=== PATIENT | male | born 1975 | race Two or more races ===

== ENCOUNTER 2017-07-03 12:37 | Inpatient (IN) | payer OTHER ==
[2017-07-03] MEDS ORDERED: SODIUM CHLORIDE 0.9% 500 ML IV STA (12:45)
[2017-07-03 12:46] LABS: Glucose,Whole Blood 126 mg/dL (75-99)
--- NOTE | 2017-07-03 12:48 | ED ---
General Adult HPI - General Stated complaint: Seizure Time Seen by Provider: 07/03/17 12:40 Source: RN notes reviewed - History of Present Illness Initial comments: This is a 41-year-old male with a past medical history significant for glioblastoma. According to the father the patient had surgery on that in January. Patient was just getting back from a doctor's appointment when he was in the car with his father and had a seizure. Father states she's never had a seizure before. Father states he was feeling fine enough had no recent fevers chills or cough per patient has a difficult to breathing. Patient has not been complaining of any chest pain or abdominal pain. Patient did not fall because he was seated in a car so there was no injury. Patient is postictal and unable to give any history. - Related Data Home Medications Medication Instructions Recorded Confirmed Multivitamins, Thera [Multivitamin 1 tab PO DAILY 07/03/17 07/03/17 (formulary)] Allergies Allergy/AdvReac Type Severity Reaction Status Date / Time pistachio nut Allergy Unknown Verified 07/03/17 13:36 Review of Systems ROS Statement: Those systems with pertinent positive or pertinent negative responses have been documented in the HPI. ROS Other: All systems not noted in ROS Statement are negative. General Exam - General Exam Comments Initial Comments: GENERAL: Patient is well-developed and well-nourished. ENT: Neck is soft and supple. No significant lymphadenopathy is noted. Oropharynx is clear. Moist mucous membranes. EYES: The sclera were anicteric and conjunctiva were pink and moist. Extraocular movements were intact and pupils were equal round and reactive to light. Eyelids were unremarkable. PULMONARY: Unlabored respirations. Good breath sounds bilaterally. No audible rales rhonchi or wheezing was noted. CARDIOVASCULAR: There is a regular rate and rhythm without any murmurs gallops or rubs. ABDOMEN: Soft and nontender with normal bowel sounds. SKIN: Skin is clear with no lesions or rashes and otherwise unremarkable. NEUROLOGIC: Patient is postictal. MUSCULOSKELETAL: Patient will not follow commands at this time. LYMPHATICS: No significant lymphadenopathy is noted PSYCHIATRIC: Unable to assess Course Vital Signs 07/03/17 07/03/17 07/03/17 13:00 13:49 14:47 Temperature 97.9 F Pulse Rate 98 152 H 64 Respiratory 20 16 16 Rate Blood Pressure 160/98 159/84 174/86 O2 Sat by Pulse 96 92 L 98 Oximetry 07/03/17 07/03/17 14:58 15:28 Temperature Pulse Rate 150 H 140 H Respiratory 18 16 Rate Blood Pressure 162/96 142/98 O2 Sat by Pulse 94 L 94 L Oximetry Medical Decision Making - Medical Decision Making EKG shows sinus tachycardia with occasional PVCs at a rate of 143 bpm IN interval is 122 QRS is 96 Q-T intervals 276 QTC is 425 per patient's EKG shows no ST segment elevation or with there is some ST segment depression inferiorly. I spoke with Dr. Minor and he agreed to admit the patient ICU. Dr. Minor wanted the patient on D5 W. I spoke with Dr. Jimenez he agreed to admit the patient. I spoke with Dr. Willis he agreed to accept the patient as a consult he wanted the patient on Keppra so started Keppra. - Lab Data Result diagrams: 07/03/17 12:40 07/03/17 12:40 Lab Results 07/03/17 07/03/17 07/03/17 Range/Units 12:40 12:40 12:40 WBC 10.2 (3.8-10.6) k/uL RBC 6.37 H (4.30-5.90) m/uL Hgb 15.0 (13.0-17.5) gm/dL Hct 50.9 (39.0-53.0) % MCV 79.9 L (80.0-100.0) fL MCH 23.5 L (25.0-35.0) pg MCHC 29.4 L (31.0-37.0) g/dL RDW 17.4 H (11.5-15.5) % Plt Count 129 L (150-450) k/uL Neutrophils % (Manual) 32 % Band Neutrophils % 1 % Lymphocytes % (Manual) 58 % Monocytes % (Manual) 9 % Neutrophils # (Manual) 3.30 (1.3-7.7) k/uL Lymphocytes # (Manual) 5.92 H (1.0-4.8) k/uL Monocytes # (Manual) 0.92 (0-1.0) k/uL Nucleated RBCs 0 (0-0) /100 WBC Manual Slide Review Performed Hypochromasia Marked Poikilocytosis (manual Present Anisocytosis Slight PT (9.0-12.0) sec INR (<1.2) APTT (22.0-30.0) sec Sodium 156 H (137-145) mmol/L Potassium 4.3 (3.5-5.1) mmol/L Chloride 110 H (98-107) mmol/L Carbon Dioxide 9 L* (22-30) mmol/L Anion Gap 37 mmol/L BUN 7 L (9-20) mg/dL Creatinine 0.89 (0.66-1.25) mg/dL Est GFR (CKD-EPI)AfAm >90 (>60 ml/min/1.73 sqM) Est GFR (CKD-EPI)NonAf >90 (>60 ml/min/1.73 sqM) Glucose 133 H (74-99) mg/dL POC Glucose (mg/dL) (75-99) mg/dL POC Glu Vp Analysis ID Plasma Lactic Acid Kurt (0.7-2.0) mmol/L Calcium 10.4 H (8.4-10.2) mg/dL Magnesium 2.4 H (1.6-2.3) mg/dL Total Bilirubin 0.5 (0.2-1.3) mg/dL AST 41 (17-59) U/L ALT 53 (21-72) U/L Alkaline Phosphatase 75 (38-126) U/L Total Creatine Kinase 73 (55-170) U/L CK-MB (CK-2) 0.3 (0.0-2.4) ng/mL CK-MB (CK-2) Rel Index 0.4 Troponin I <0.012 (0.000-0.034) ng/mL Total Protein 8.5 H (6.3-8.2) g/dL Albumin 5.1 H (3.5-5.0) g/dL 07/03/17 07/03/17 07/03/17 Range/Units 12:40 12:44 14:45 WBC (3.8-10.6) k/uL RBC (4.30-5.90) m/uL Hgb (13.0-17.5) gm/dL Hct (39.0-53.0) % MCV (80.0-100.0) fL MCH (25.0-35.0) pg MCHC (31.0-37.0) g/dL RDW (11.5-15.5) % Plt Count (150-450) k/uL Neutrophils % (Manual) % Band Neutrophils % % Lymphocytes % (Manual) % Monocytes % (Manual) % Neutrophils # (Manual) (1.3-7.7) k/uL Lymphocytes # (Manual) (1.0-4.8) k/uL Monocytes # (Manual) (0-1.0) k/uL Nucleated RBCs (0-0) /100 WBC Manual Slide Review Hypochromasia Poikilocytosis (manual Anisocytosis PT 9.5 (9.0-12.0) sec INR 0.9 (<1.2) APTT 23.1 (22.0-30.0) sec Sodium (137-145) mmol/L Potassium (3.5-5.1) mmol/L Chloride (98-107) mmol/L Carbon Dioxide (22-30) mmol/L Anion Gap mmol/L BUN (9-20) mg/dL Creatinine (0.66-1.25) mg/dL Est GFR (CKD-EPI)AfAm (>60 ml/min/1.73 sqM) Est GFR (CKD-EPI)NonAf (>60 ml/min/1.73 sqM) Glucose (74-99) mg/dL POC Glucose (mg/dL) 126 H (75-99) mg/dL POC Glu Vp Analysis ID Aleena Adams Plasma Lactic Acid Kurt 5.5 H* (0.7-2.0) mmol/L Calcium (8.4-10.2) mg/dL Magnesium (1.6-2.3) mg/dL Total Bilirubin (0.2-1.3) mg/dL AST (17-59) U/L ALT (21-72) U/L Alkaline Phosphatase (38-126) U/L Total Creatine Kinase (55-170) U/L CK-MB (CK-2) (0.0-2.4) ng/mL CK-MB (CK-2) Rel Index Troponin I (0.000-0.034) ng/mL Total Protein (6.3-8.2) g/dL Albumin (3.5-5.0) g/dL Critical Care Time Critical Care Time: Yes Total Critical Care Time: 35 Disposition Clinical Impression: New onset seizure, Hypernatremia, Lactic acidosis Disposition: ADMITTED IP TO THIS HOSP Referrals: None,Stated [REFERRING] - 1-2 days Time of Disposition: 16:02
[2017-07-03] MEDS: LORazepam 2 MG/ML INJ IV STA ×2 (12:50→14:58)
--- NOTE | 2017-07-03 13:06 | CT ---
EXAMINATION TYPE: CT brain wo con DATE OF EXAM: 07/03/2017 COMPARISON: NONE HISTORY: Seizure, history of glioblastoma with surgery CT DLP: 985.3 mGycm. Automated Exposure Control for Dose Reduction was Utilized. TECHNIQUE: CT scan of the head is performed without contrast. FINDINGS: There is abnormal attenuation within the right temporal lobe suggestive of vasogenic hany a. Area of encephalomalacia involving the right occipital lobe and posterior parietal lobe noted and there is evidence of previous surgery. No midline shift or evidence of acute hemorrhage. Postsurgical change involving the calvarium noted. Changes of chronic sinusitis noted. IMPRESSION: 1. Abnormal attenuation within the right temporal and parietal lobe may be in the basis of vasogenic edema given the patient's history and related to the reported history of neoplasm. Recommend MRI. 2. No midline shift or acute hemorrhage. 3. Encephalomalacia involving the posterior occipital and parietal lobe.
[2017-07-03 13:21] LABS: Anisocytosis Slight; HCT 50.9 % (39.0-53.0); Hypochromasia Marked; MCH 23.5 pg (25.0-35.0); MCHC 29.4 g/dL (31.0-37.0); MCV 79.9 fL (80.0-100.0); Mean Platelet Volume 6.8; Platelet Count 129 k/uL (150-450); RBC 6.37 m/uL (4.30-5.90); RDW 17.4 % (11.5-15.5); WBC 10.2 k/uL (3.8-10.6)
[2017-07-03 13:26] LABS: ALT 53 U/L (21-72); AST 41 U/L (17-59); Albumin 5.1 g/dL (3.5-5.0); Alkaline Phosphatase 75 U/L (38-126); Anion Gap 37 mmol/L; Blood Urea Nitrogen 7 mg/dL (9-20); Calcium 10.4 mg/dL (8.4-10.2); Chloride 110 mmol/L (98-107); Glucose 133 mg/dL (74-99); Magnesium 2.4 mg/dL (1.6-2.3); Potassium 4.3 mmol/L (3.5-5.1); Sodium 156 mmol/L (137-145); Total Bilirubin 0.5 mg/dL (0.2-1.3); Total Protein 8.5 g/dL (6.3-8.2)
[2017-07-03 13:29] LABS: INR 0.9 (<1.2); Prothrombin Time 9.5 sec (9.0-12.0)
--- NOTE | 2017-07-03 13:34 | XR ---
EXAMINATION TYPE: XR chest 1V portable DATE OF EXAM: 07/03/2017 COMPARISON: NONE HISTORY: Chest pain TECHNIQUE: Single frontal view of the chest is obtained. FINDINGS: There is no focal air space opacity, pleural effusion, or pneumothorax seen. The cardiac silhouette size is within normal limits. The osseous structures are intact remote left rib fracture. IMPRESSION: 1. No acute process.
[2017-07-03 13:35] LABS: Carbon Dioxide 9 mmol/L (22-30)
[2017-07-03 13:36] LABS: Partial Thromboplastin Time 23.1 sec (22.0-30.0)
[2017-07-03 13:37] LABS: Creatine Kinase 73 U/L (55-170)
[2017-07-03 13:50] LABS: Creatine Kinase MB 0.3 ng/mL (0.0-2.4); Troponin I <0.012 ng/mL (0.000-0.034)
[2017-07-03] MEDS ORDERED: ACETAMINOPHEN IV (For NPO) 1,000 MG in SALINE 100 100ML.BAG IVPB STA (14:04)
[2017-07-03 14:22] LABS: Band Neutrophils % 1 %; Lymphocytes # (M) 5.92 k/uL (1.0-4.8); Monocytes # (M) 0.92 k/uL (0-1.0); Neutrophils % (M) 32 %; Nucleated Red Blood Cells 0 /100 WBC (0-0); Total Cells Counted 100
[2017-07-03 14:23] LABS: Poikilocytosis (M) Present
[2017-07-03] MEDS ORDERED: levETIRAcetam IV 1,000 MG in SALINE 1 100ML.BAG IVPB STA (15:11)
[2017-07-03] MEDS ORDERED: NALOXONE 0.4 MG/ML 1 ML VIAL IV PRN (16:10)
[2017-07-03 16:14] LABS: ABG PCO2 52 mmHg (35-45); ABG PH 7.26 (7.35-7.45); ABG PO2 107 mmHg (83-108)
[2017-07-03 16:15] LABS: ABG Base Excess -3.3 mmol/L; ABG HCO3 24 mmol/L (21-25); ABG TCO2 25 mmol/L (19-24)
[2017-07-03] MEDS ORDERED: DEXTROSE 5% IN WATER 1,000 ML IV SCH (16:15)
[2017-07-03 17:11] LABS: Glucose,Whole Blood 112 mg/dL (75-99)
[2017-07-03] MEDS ORDERED: LORazepam 2 MG/ML INJ IV PRN ×4 (17:26)
[2017-07-03 17:48] VITALS: BMI 29.2
[2017-07-03] MEDS ORDERED: SODIUM BICARB 8.4% 50 ML VIAL (1 MEQ/ML) IV ONE (19:13)
[2017-07-03] MEDS ORDERED: SODIUM BICARB 8.4% 50 ML SYR (1 MEQ/ML) IV ONE ×2 (19:14→19:30)
--- NOTE | 2017-07-03 19:50 | HP ---
HISTORY AND PHYSICAL DATE OF ADMISSION: 07/03/2017 PRESENTING COMPLAINT: Seizure. HISTORY OF PRESENTING COMPLAINT: This is a 41-year-old patient of Dr. Haney. History is obtained by the nurse at the bedside. Patient is rather lethargic. Patient was in [place] summer when he collapsed. He was found to have a glioblastoma. The patient was at [facility], where the tumor was partially resected, and because there was quite a bit of the base of the brain, the rest of it could not be removed. The patient was put on a chemo pill. The patient was coming out from a doctor's appointment with his stepfather in the car when he had actually had a seizure. They brought him down to the ER. He had 2 more seizures there for about 30 seconds. The patient got Ativan x3 and also was given IV Keppra. Patient had a sodium of 156 and a bicarb of 9. Hence I asked that the patient be admitted to the ICU with a consultation to Dr. Minor and Neurology with IV fluids and bicarb. No other family member is currently available. Patient is known to be a smoker otherwise lives with his mother. REVIEW OF SYSTEMS: Patient is rather lethargic. PAST MEDICAL HISTORY: 1. Glioblastoma with partial surgical removal. 2. Childhood closed head injury. 3. Chronic headaches. 4. Hemianopsia, left eye. PAST SURGICAL HISTORY: As above, including hernia repair. SOCIAL HISTORY: Patient does not smoke. Alcohol rarely. FAMILY HISTORY: Bone cancer and CLL. HOME MEDICATIONS: The patient is on a chemo pill and multivitamin. ALLERGIES: PISTACHIOS. PHYSICAL EXAMINATION: VITAL SIGNS ON PRESENTATION: Temperature 97.9, pulse 128, respiration 16, blood pressure 136/78, pulse ox 96% on 2 L. GENERAL APPEARANCE: Average build. Lying in bed. Lethargic but arousable. EYES: Pupils equal. Conjunctivae normal. HEENT: External appearance of nose and ears normal. Oral cavity dry. NECK: JVD not raised. Mass not palpable. RESPIRATORY: Effort normal. Lungs are clear. CARDIOVASCULAR: First and second sounds normal. No edema. ABDOMEN: Soft, non-tender. Liver and spleen not palpable. LYMPHATIC: No lymph node palpable in neck or axillae. PSYCHIATRY: Patient is arousable but not really able to answer questions and dozes off. NEUROLOGICAL: Pupils equal. No facial asymmetry. Moving all 4 limbs. Plantars are downgoing. Reflexes are equal and symmetrical. INVESTIGATIONS: White count 10.2, hemoglobin 15, platelets 129. Blood gas showed a pH of 7.26 with a pCO2 of 52. Sodium 156, potassium 4.3, BUN 7, creatinine 0.89. Bicarb is 9, lactic acid 5.5, calcium 10.4, magnesium 2.4. CT scan of the brain shows abnormal attenuation within the right temporal and parietal lobe; could be some vasogenic edema; some encephalomalacia involving the posterior parietal and parietal lobe. ASSESSMENT: 1. Recurrent seizures in a patient with recent partial glioblastoma that was removed. Patient has been started on IV Keppra. He is currently in a postictal state. 2. Encephalomalacia secondary to prior brain surgery. 3. Glioblastoma, partially removed, currently getting chemotherapy and due for radiation down the road. 4. Severe hypernatremia, probably from free water deficit. 5. Significant metabolic acidosis; could be from decreased oral intake. 6. Hypercalcemia, probably from free water deficit. PLAN: Patient is put on IV fluids, getting bicarb, also on IV Keppra. Neuro checks are in place. Consultations with Dr. Minor from Critical Care, Dr. Mariscal from Nephrology and Dr. Banks from Neurology have been requested. Prognosis is guarded. Patient is otherwise n.p.o. EEG was also ordered. SARY / MARY: [id number] /
[2017-07-03 20:05] LABS: Anion Gap 16 mmol/L; Blood Urea Nitrogen 9 mg/dL (9-20); Calcium 9.1 mg/dL (8.4-10.2); Carbon Dioxide 24 mmol/L (22-30); Chloride 104 mmol/L (98-107); Glucose 124 mg/dL (74-99); Potassium 4.9 mmol/L (3.5-5.1); Sodium 144 mmol/L (137-145)
[2017-07-03] MEDS: DEXTROSE 5% IN WATER 1,000 ML with SODIUM BICARB (1 MEQ/ML) 50 ML IV SCH (20:12)
--- NOTE | 2017-07-03 20:13 | P.CONS ---
History of Present Illness - Reason for Consult Consult date: 07/03/17 Seizure - Chief Complaint Seizure - History of Present Illness Is a pleasant 41-year-old male being evaluated by the neurology service for new onset seizure. He has a history of partially resected glioblastoma by physicians at [facility]. He was on his way back from a doctor's appointment when he had generalized seizure activity. He was brought to [facility] emergency room where he had 2 more seizures. He was given Ativan and started on IV Keppra 750 mg every 12 hours. He was admitted to the ICU for this and for a sodium of 156 and a bicarb of 9. He has had no further seizure activity since admission. CT of the brain did show findings consistent with the above history. There was some vasogenic edema but no midline shift. At the time my exam is resting comfortably in bed he is drowsy but easily awoken. Review of Systems All systems: negative Constitutional: Reports as per HPI Past Medical History Additional Past Medical History / Comment(s): glioblastoma, hemianopsia left eye , neoplastic malignant fatigue, childhood closed head injury, chronic CHENG. History of Any Multi-Drug Resistant Organisms: None Reported Past Surgical History: Hernia Repair Additional Past Surgical History / Comment(s): Brain surgery-part of glioblastoma removed (01/2017). Past Anesthesia/Blood Transfusion Reactions: No Reported Reaction Smoking Status: Never smoker - Past Family History grandparent Family Medical History: Cancer Additional Family Medical History / Comment(s): bone cancer, CLL Medications and Allergies Home Medications Medication Instructions Recorded Confirmed Type Multivitamins, Thera [Multivitamin 1 tab PO DAILY 07/03/17 07/03/17 History (formulary)] Allergies Allergy/AdvReac Type Severity Reaction Status Date / Time pistachio nut Allergy Unknown Verified 07/03/17 13:36 Physical Exam Vitals: Vital Signs Temp Pulse Pulse Resp BP BP Pulse Ox 07/03/17 19:00 103 H 18 113/81 100 07/03/17 18:00 108 H 15 119/85 98 07/03/17 17:50 106 H 20 119/86 97 07/03/17 17:49 98.4 F 100 22 112/77 100 07/03/17 17:48 98.4 F 07/03/17 17:10 98.4 F 108 H 14 119/89 100 07/03/17 16:16 124 H 16 138/88 95 07/03/17 15:28 140 H 16 142/98 94 L 07/03/17 14:58 150 H 18 162/96 94 L 07/03/17 14:47 97.9 F 128 H 16 136/78 96 07/03/17 13:49 152 H 16 159/84 92 L 07/03/17 13:00 98 20 160/98 96 Intake and Output 07/03/17 07/03/17 07/03/17 06:59 14:59 22:59 Intake Total 350 Balance 350 Intake: IV 350 Dextrose 5% in Water 1, 350 000 ml @ 175 mls/hr IV . Q5H43M [facility] Rx#:[id number] Other: Voiding Method Urinal Weight 83.007 kg 84.6 kg - Constitutional General appearance: average body habitus, cooperative, no acute distress - EENT Eyes: no abnormal pupil, EOMI, PERRLA, no ptosis ENT: hearing grossly normal - Neck Neck: normal ROM, no rigidity - Respiratory Respiratory: negative: prolonged expiration, prolonged inspiration - Cardiovascular Rhythm: regular - Gastrointestinal General gastrointestinal: no distended, no tenderness - Neurologic The patient is sleepy but easily awoken and oriented 3. Speech and language are normal. There is no facial asymmetry. Strength is 5 out of 5 in bilateral upper and lower extremities. There is no sensory deficit. No tremors or seizures are seen. Cranial nerves II through XII are intact globally. Results CBC & Chem 7: 07/03/17 12:40 07/03/17 12:40 Labs: Abnormal Lab Results - Last 24 Hours (Table) 07/03/17 07/03/17 07/03/17 Range/Units 12:40 12:40 12:44 RBC 6.37 H (4.30-5.90) m/uL MCV 79.9 L (80.0-100.0) fL MCH 23.5 L (25.0-35.0) pg MCHC 29.4 L (31.0-37.0) g/dL RDW 17.4 H (11.5-15.5) % Plt Count 129 L (150-450) k/uL Lymphocytes # (Manual) 5.92 H (1.0-4.8) k/uL ABG pH (7.35-7.45) ABG pCO2 (35-45) mmHg ABG Total CO2 (19-24) mmol/L Sodium 156 H (137-145) mmol/L Chloride 110 H (98-107) mmol/L Carbon Dioxide 9 L* (22-30) mmol/L BUN 7 L (9-20) mg/dL Glucose 133 H (74-99) mg/dL POC Glucose (mg/dL) 126 H (75-99) mg/dL Plasma Lactic Acid Kurt (0.7-2.0) mmol/L Calcium 10.4 H (8.4-10.2) mg/dL Magnesium 2.4 H (1.6-2.3) mg/dL Total Protein 8.5 H (6.3-8.2) g/dL Albumin 5.1 H (3.5-5.0) g/dL 07/03/17 07/03/17 07/03/17 Range/Units 14:45 15:55 17:07 RBC (4.30-5.90) m/uL MCV (80.0-100.0) fL MCH (25.0-35.0) pg MCHC (31.0-37.0) g/dL RDW (11.5-15.5) % Plt Count (150-450) k/uL Lymphocytes # (Manual) (1.0-4.8) k/uL ABG pH 7.26 L (7.35-7.45) ABG pCO2 52 H (35-45) mmHg ABG Total CO2 25 H (19-24) mmol/L Sodium (137-145) mmol/L Chloride (98-107) mmol/L Carbon Dioxide (22-30) mmol/L BUN (9-20) mg/dL Glucose (74-99) mg/dL POC Glucose (mg/dL) 112 H (75-99) mg/dL Plasma Lactic Acid Kurt 5.5 H* (0.7-2.0) mmol/L Calcium (8.4-10.2) mg/dL Magnesium (1.6-2.3) mg/dL Total Protein (6.3-8.2) g/dL Albumin (3.5-5.0) g/dL 07/03/17 Range/Units 18:32 RBC (4.30-5.90) m/uL MCV (80.0-100.0) fL MCH (25.0-35.0) pg MCHC (31.0-37.0) g/dL RDW (11.5-15.5) % Plt Count (150-450) k/uL Lymphocytes # (Manual) (1.0-4.8) k/uL ABG pH (7.35-7.45) ABG pCO2 (35-45) mmHg ABG Total CO2 (19-24) mmol/L Sodium (137-145) mmol/L Chloride (98-107) mmol/L Carbon Dioxide (22-30) mmol/L BUN (9-20) mg/dL Glucose (74-99) mg/dL POC Glucose (mg/dL) (75-99) mg/dL Plasma Lactic Acid Kurt 3.1 H* (0.7-2.0) mmol/L Calcium (8.4-10.2) mg/dL Magnesium (1.6-2.3) mg/dL Total Protein (6.3-8.2) g/dL Albumin (3.5-5.0) g/dL Assessment and Plan (1) Glioblastoma Current Visit: Yes Status: Chronic Code(s): C71.9 - MALIGNANT NEOPLASM OF BRAIN, UNSPECIFIED SNOMED Code(s): 06963250379732 (2) Vasogenic brain edema Current Visit: Yes Status: Chronic Code(s): G93.6 - CEREBRAL EDEMA SNOMED Code(s): 655460495 (3) Hypernatremia Current Visit: Yes Status: Acute Code(s): E87.0 - HYPEROSMOLALITY AND HYPERNATREMIA SNOMED Code(s): 32686009 (4) Lactic acidosis Current Visit: Yes Status: Acute Code(s): E87.2 - ACIDOSIS SNOMED Code(s) : 07961893 (5) New onset seizure Current Visit: Yes Status: Acute Code(s): R56.9 - UNSPECIFIED CONVULSIONS SNOMED Code(s): 28545672 Plan: Is patient has experienced new onset seizures. We have started him on IV Keppra. No seizure activity has been noted since his admission. Continue care in the ICU to correctly metabolic abnormalities. Since there is no midline shift on his CT, we will not initiate any corticosteroids. Continue neurological checks and seizure precautions. EEG will be ordered. We'll continue to monitor and possibly get an MRI if there is a significant change in his neurological status. He remained seizure-free with no focal neurological deficits we will clear him for discharge to follow up with his [facility] physicians. We'll continue to follow. The patient is informed that in the [facility] anybody experiencing seizures or loss of consciousness is not to drive for a period of 6 months. I have performed a history and physical on the above patient. I have reviewed the above note, and agree.
[2017-07-03] MEDS: levETIRAcetam IV 750 MG in SODIUM CHLORIDE 0.9% 100 ML IVPB SCH (21:57)
[2017-07-03 23:16] LABS: Appearance,Urine Clear (Clear); Bilirubin,Urine Negative (Negative); Blood,Urine Negative (Negative); Color,Urine Yellow; Glucose,Urine (UA) Negative (Negative); Ketones,Urine Negative (Negative); Leukocyte Esterase,Urine Negative (Negative); Nitrite,Urine Negative (Negative); Protein,Urine Negative (Negative); Specific Gravity,Urine 1.015 (1.001-1.035); Urobilinogen,Urine <2.0 mg/dL (<2.0)
[2017-07-03] MEDS: HEPARIN SODIUM,PORCINE 5,000 UNIT/ML 1 ML VIAL SQ SCH (23:50)
[2017-07-04 00:06] LABS: Glucose,Whole Blood 129 mg/dL (75-99)
[2017-07-04] MEDS: DEXTROSE 5% IN WATER 1,000 ML with SODIUM BICARB (1 MEQ/ML) 50 ML IV SCH ×2 (03:43→13:25)
[2017-07-04 04:38] LABS: Anisocytosis Slight; Basophils % (A) 0 %; Eosinophils % (A) 0 %; HCT 35.9 % (39.0-53.0); Lymphocytes # (A) 0.7 k/uL (1.0-4.8); Lymphocytes % (A) 12 %; MCH 22.8 pg (25.0-35.0); MCHC 31.2 g/dL (31.0-37.0); Mean Platelet Volume 7.3; Microcytosis Moderate; Monocytes # (A) 0.4 k/uL (0-1.0); Monocytes % (A) 6 %; Neutrophils # (A) 4.7 k/uL (1.3-7.7); Neutrophils % (A) 80 %; RBC 4.91 m/uL (4.30-5.90); RDW 18.3 % (11.5-15.5); WBC 5.9 k/uL (3.8-10.6)
[2017-07-04 04:49] LABS: HGB 11.2 gm/dL (13.0-17.5); MCV 73.1 fL (80.0-100.0)
[2017-07-04 04:53] LABS: Anion Gap 10 mmol/L; Blood Urea Nitrogen 9 mg/dL (9-20); Calcium 8.7 mg/dL (8.4-10.2); Carbon Dioxide 31 mmol/L (22-30); Chloride 99 mmol/L (98-107); Glucose 106 mg/dL (74-99); Phosphorus 4.2 mg/dL (2.5-4.5); Potassium 3.7 mmol/L (3.5-5.1); Sodium 140 mmol/L (137-145)
[2017-07-04] MEDS ORDERED: Potassium Replacement Protocol 1 EACH MISC MISCELLANE PRN (05:18)
[2017-07-04 05:22] LABS: Platelet Count 93 k/uL (150-450)
[2017-07-04] MEDS: POTASSIUM CHLORIDE 10 MEQ in WATER FOR INJECTION 1 100ML.BAG IVPB SCH ×2 (05:57→06:59)
[2017-07-04 06:30] LABS: Glucose,Whole Blood 89 mg/dL (75-99)
[2017-07-04] MEDS: levETIRAcetam IV 750 MG in SODIUM CHLORIDE 0.9% 100 ML IVPB SCH (08:44)
[2017-07-04] MEDS ORDERED: PANTOPRAZOLE 40 MG/10 ML VIAL IV SCH (09:00)
[2017-07-04] MEDS ORDERED: DEXTROSE 5%-LACTATED RINGERS 1,000 ML IV SCH (10:00)
[2017-07-04 10:04] VITALS: TEMP 98.7
--- NOTE | 2017-07-04 10:10 | P.NPCON ---
History of Present Illness - Reason for Consult hypernatremia - History of Present Illness Reason for consultation: Hypernatremia History of present illness: Patient is a 40-year-old male seen in renal consultation for hypernatremia. Patient's sodium level was 156 on admission and he was subsequently started on D5W at 175 an hour which was subsequently changed to D5W with an amp of sodium bicarbonate at 175 mL an hour. Sodium level this morning is 140. Sodium bicarbonate drip has been discontinued. Patient has history of glioblastoma and had a surgical resection in January 2017. He was also on chemotherapy which she states he completed last month. Patient had a seizure in the car and was subsequently brought to the hospital. He had 2 more seizures in the ER. He has no history of prior seizures. Denies any history of kidney failure. Creatinine is 0.6 today. His bicarb level was 9 on admission and is up to 31 today. His lactic acid level was also 5.5 and is down to 2.2. Hemodynamically stable. He is currently awake and alert. He is resting in bed. No active complaints at this time. Brain CT on admission revealed attenuation in right temporal and parietal lobe likely on the basis of vasogenic edema due to his history of neoplasm. No acute changes were noted. Vital signs are stable. General: The patient appeared well nourished and normally developed. HEENT: Head exam is unremarkable. Neck is without jugular venous distension. LUNGS: Lungs are clear to auscultation and percussion. Breath sounds decreased. HEART: Rate and Rhythm are regular. First and second heart sounds normal. No murmurs, rubs or gallops. ABDOMEN: Abdominal exam reveals normal bowel sounds. Non-tender and non- distended. No evidence of peritonitis. EXTREMITITES: No clubbing, cyanosis, or edema. Past Medical History Additional Past Medical History / Comment(s): glioblastoma, hemianopsia left eye , neoplastic malignant fatigue, childhood closed head injury, chronic CHENG. History of Any Multi-Drug Resistant Organisms: None Reported Past Surgical History: Hernia Repair Additional Past Surgical History / Comment(s): Brain surgery-part of glioblastoma removed (01/2017). Past Anesthesia/Blood Transfusion Reactions: No Reported Reaction Smoking Status: Never smoker - Past Family History grandparent Family Medical History: Cancer Additional Family Medical History / Comment(s): bone cancer, CLL Medications and Allergies Home Medications Medication Instructions Recorded Confirmed Type Multivitamins, Thera [Multivitamin 1 tab PO DAILY 07/03/17 07/03/17 History (formulary)] Allergies Allergy/AdvReac Type Severity Reaction Status Date / Time pistachio nut Allergy Unknown Verified 07/03/17 13:36 Physical Exam Vitals: Vital Signs Temp Pulse Pulse Resp BP BP Pulse Ox 07/04/17 07:38 99 07/04/17 07:00 82 23 108/77 98 07/04/17 06:30 82 19 111/78 99 07/04/17 06:00 86 18 111/78 96 07/04/17 05:30 81 15 110/72 98 07/04/17 05:00 82 21 110/72 99 07/04/17 04:30 79 21 106/71 99 07/04/17 04:00 79 19 110/72 98 07/04/17 03:30 79 19 109/74 99 07/04/17 03:00 77 18 107/68 100 07/04/17 02:30 89 21 118/69 98 07/04/17 02:00 91 18 107/72 99 07/04/17 01:30 90 12 108/75 98 07/04/17 01:00 89 17 112/68 100 07/04/17 00:30 82 14 108/76 99 07/04/17 00:00 96 19 104/70 99 07/03/17 23:30 103 H 20 114/74 98 07/03/17 23:00 129 H 20 133/89 98 07/03/17 22:30 103 H 18 114/77 98 07/03/17 22:05 97 16 108/72 99 07/03/17 22:00 97 20 108/72 99 07/03/17 21:30 105 H 21 114/75 99 07/03/17 21:04 98 07/03/17 21:00 100 21 110/76 98 07/03/17 20:30 108 H 19 114/80 99 07/03/17 20:00 98.5 F 97 19 112/77 99 07/03/17 19:30 101 H 16 111/76 99 07/03/17 19:00 103 H 18 113/81 100 07/03/17 18:00 108 H 15 119/85 98 07/03/17 17:50 106 H 20 119/86 97 07/03/17 17:49 98.4 F 100 22 112/77 100 07/03/17 17:48 98.4 F 07/03/17 17:10 98.4 F 108 H 14 119/89 100 07/03/17 16:16 124 H 16 138/88 95 07/03/17 15:28 140 H 16 142/98 94 L 07/03/17 14:58 150 H 18 162/96 94 L 07/03/17 14:47 97.9 F 128 H 16 136/78 96 07/03/17 13:49 152 H 16 159/84 92 L 07/03/17 13:00 98 20 160/98 96 Intake and Output 07/03/17 07/04/17 07/04/17 22:59 06:59 14:59 Intake Total 875 1500 Output Total 1500 Balance 875 0 Intake: IV 875 1050 Dextrose 5% in Water 1, 875 1050 000 ml @ 175 mls/hr IV . Q5H43M KALYANI Rx#:[id number] Intake, IV Titration 450 Amount Dextrose 5% in Water 1, 350 000 ml @ 175 mls/hr IV . Q6H KALYANI with Sodium Bicarb (1 Meq/ml) 50 ml Rx#:[id number] Potassium Chloride 10 meq 100 In Water For Injection 1 100ml.bag @ 100 mls/hr IVPB Q1H KALYANI Rx#: [id number] Output: Urine 1500 Other: Voiding Method Urinal Urinal # Voids 0 1 Weight 84.6 kg 83.2 kg Results - Lab Results Most recent lab results ABG pH 7.26 (7.35-7.45) L 07/03/17 15:55 ABG pCO2 52 mmHg (35-45) H 07/03/17 15:55 ABG pO2 107 mmHg (83-108) 07/03/17 15:55 ABG HCO3 24 mmol/L (21-25) 07/03/17 15:55 ABG O2 Saturation 97.0 % (94-97) 07/03/17 15:55 Calcium 8.7 mg/dL (8.4-10.2) 07/04/17 04:10 Phosphorus 4.2 mg/dL (2.5-4.5) 07/04/17 04:10 Magnesium 2.0 mg/dL (1.6-2.3) 07/04/17 04:10 07/04/17 04:10 07/04/17 04:10 Assessment and Plan Plan: Assessment: #1. Hypernatremia related to free water deficit. Sodium level was 156 on admission and improved with free water replacement. Sodium level this morning is 140. #2. History of glioblastoma status post surgical resection in January 2017. Patient follows at [facility]. #3. Metabolic acidosis secondary to lactic acidosis secondary to seizures. #4. New onset seizures. Plan: Discontinue hypotonic fluids. Patient to be started on D5 LR at 75 mL an hour. Repeat sodium level at 5 PM today. Follow-up EEG. Neurology following. Thank you for the consultation. I will continue to follow the patient with you during his hospital stay.
[2017-07-04] MEDS: HEPARIN SODIUM,PORCINE 5,000 UNIT/ML 1 ML VIAL SQ SCH (10:32)
--- NOTE | 2017-07-04 10:38 | P.CNPUL ---
History of Present Illness Consult date: 07/04/17 Requesting physician: Franco Jimenez Reason for consult: other (Critical care management) Chief complaint: Seizure activity History of present illness: This is a very pleasant 41-year-old gentleman who has a history of glioblastoma. He had surgery at [facility] in January 2017. He follows with a neurologist at the [facility]. He was coming back from a doctor's appointment with his father when he had a seizure. The patient had not had any previous history of seizure activity. Came to the emergency room for the same. There was no injury detected. The patient was post ictal initially. Computed tomography scan of the brain revealed abnormal attenuation within the right temporal and parietal lobe possibly the basis of age so genic edema. There is no midline shift or acute hemorrhage. There was some encephalomalacia involving the posterior occipital and parietal lobe. MRI was recommended. EEG is pending. Arterial blood gases revealed a PaO2 of 102, pCO2 of 52 and a pH of 7.26. He is seen today in consultation in the intensive care unit. He is awake and alert in no acute distress. He was seen and evaluated by neurology and had been initiated on Keppra. No further seizure activity. He denies any pain or discomfort. He denies any headaches currently. No shortness of breath, cough or congestion. He is maintaining good O2 saturations in the high 90s on 2 L/m per nasal cannula. He's been afebrile. Hemodynamically stable. White count 5.9. Hemoglobin 11.2. Platelet count 93,000. Creatinine 0.60. His initial bicarbonate level was 9 currently 31. He remains on D5W with 1 amp of sodium bicarbonate 175 mL per hour. Review of Systems 14 point review of system was conducted. All negative other than as mentioned in the HPI. Past Medical History Additional Past Medical History / Comment(s): glioblastoma, hemianopsia left eye , neoplastic malignant fatigue, childhood closed head injury, chronic CHENG. History of Any Multi-Drug Resistant Organisms: None Reported Past Surgical History: Hernia Repair Additional Past Surgical History / Comment(s): Brain surgery-part of glioblastoma removed (01/2017). Past Anesthesia/Blood Transfusion Reactions: No Reported Reaction Smoking Status: Never smoker - Past Family History grandparent Family Medical History: Cancer Additional Family Medical History / Comment(s): bone cancer, CLL Medications and Allergies Home Medications Medication Instructions Recorded Confirmed Type Multivitamins, Thera [Multivitamin 1 tab PO DAILY 07/03/17 07/03/17 History (formulary)] Allergies Allergy/AdvReac Type Severity Reaction Status Date / Time pistachio nut Allergy Unknown Verified 07/03/17 13:36 Physical Exam Vitals: Vital Signs Temp Pulse Pulse Resp BP BP Pulse Ox 07/04/17 10:00 75 15 123/73 98 07/04/17 09:00 76 14 106/84 99 07/04/17 08:00 98.7 F 79 13 121/81 100 07/04/17 07:38 99 07/04/17 07:00 82 23 108/77 98 07/04/17 06:30 82 19 111/78 99 07/04/17 06:00 86 18 111/78 96 07/04/17 05:30 81 15 110/72 98 07/04/17 05:00 82 21 110/72 99 07/04/17 04:30 79 21 106/71 99 07/04/17 04:00 79 19 110/72 98 07/04/17 03:30 79 19 109/74 99 07/04/17 03:00 77 18 107/68 100 07/04/17 02:30 89 21 118/69 98 07/04/17 02:00 91 18 107/72 99 07/04/17 01:30 90 12 108/75 98 07/04/17 01:00 89 17 112/68 100 07/04/17 00:30 82 14 108/76 99 07/04/17 00:00 96 19 104/70 99 07/03/17 23:30 103 H 20 114/74 98 07/03/17 23:00 129 H 20 133/89 98 07/03/17 22:30 103 H 18 114/77 98 07/03/17 22:05 97 16 108/72 99 07/03/17 22:00 97 20 108/72 99 07/03/17 21:30 105 H 21 114/75 99 07/03/17 21:04 98 07/03/17 21:00 100 21 110/76 98 07/03/17 20:30 108 H 19 114/80 99 07/03/17 20:00 98.5 F 97 19 112/77 99 07/03/17 19:30 101 H 16 111/76 99 03/23/18 19:00 103 H 18 113/81 100 07/03/17 18:00 108 H 15 119/85 98 07/03/17 17:50 106 H 20 119/86 97 07/03/17 17:49 98.4 F 100 22 112/77 100 07/03/17 17:48 98.4 F 07/03/17 17:10 98.4 F 108 H 14 119/89 100 07/03/17 16:16 124 H 16 138/88 95 07/03/17 15:28 140 H 16 142/98 94 L 07/03/17 14:58 150 H 18 162/96 94 L 07/03/17 14:47 97.9 F 128 H 16 136/78 96 07/03/17 13:49 152 H 16 159/84 92 L 07/03/17 13:00 98 20 160/98 96 Intake and Output 07/03/17 07/04/17 07/04/17 22:59 06:59 14:59 Intake Total 875 1500 525 Output Total 1500 600 Balance 875 0 -75 Intake: IV 875 1050 525 Dextrose 5% in Water 1, 875 1050 525 000 ml @ 175 mls/hr IV . Q5H43M KALYANI Rx#:[id number] Intake, IV Titration 450 Amount Dextrose 5% in Water 1, 350 000 ml @ 175 mls/hr IV . Q6H KALYANI with Sodium Bicarb (1 Meq/ml) 50 ml Rx#:[id number] Potassium Chloride 10 meq 100 In Water For Injection 1 100ml.bag @ 100 mls/hr IVPB Q1H KALYANI Rx#: [id number] Output: Urine 1500 600 Other: Voiding Method Urinal Urinal # Voids 0 1 1 Weight 84.6 kg 83.2 kg GENERAL EXAM: Alert, comfortable in no apparent distress. HEAD: Normocephalic. EYES: Normal reaction of pupils, equal size. NOSE: Clear with pink turbinates. THROAT: No erythema or exudates. NECK: No masses, no JVD. CHEST: No chest wall deformity. LUNGS: Equal air entry with no crackles, wheeze, rhonchi or dullness. CVS: S1 and S2 normal with no audible murmur, regular rhythm. ABDOMEN: No hepatosplenomegaly, normal bowel sounds, no guarding or rigidity. SPINE: No scoliosis or deformity SKIN: No rashes CENTRAL NERVOUS SYSTEM: No focal deficits, tone is normal in all 4 extremities. EXTREMITIES: There is no peripheral edema. No clubbing, no cyanosis. Peripheral pulses are intact. Results - Laboratory Findings CBC and BMP: 07/04/17 04:10 07/04/17 04:10 ABG ABG pH 7.26 (7.35-7.45) L 07/03/17 15:55 ABG pCO2 52 mmHg (35-45) H 07/03/17 15:55 ABG pO2 107 mmHg (83-108) 07/03/17 15:55 ABG O2 Saturation 97.0 % (94-97) 07/03/17 15:55 PT/INR, D-dimer PT 9.5 sec (9.0-12.0) 07/03/17 12:40 INR 0.9 (<1.2) 07/03/17 12:40 Abnormal lab findings: Abnormal Labs 07/03/17 07/03/17 07/03/17 12:40 12:40 12:44 RBC 6.37 H Hgb Hct MCV 79.9 L MCH 23.5 L MCHC 29.4 L RDW 17.4 H Plt Count 129 L Lymphocytes # Lymphocytes # (Manual) 5.92 H ABG pH ABG pCO2 ABG Total CO2 Sodium 156 H Chloride 110 H Carbon Dioxide 9 L* BUN 7 L Creatinine Glucose 133 H POC Glucose (mg/dL) 126 H Plasma Lactic Acid Kurt Calcium 10.4 H Magnesium 2.4 H Total Protein 8.5 H Albumin 5.1 H 07/03/17 07/03/17 07/03/17 14:45 15:55 17:07 RBC Hgb Hct MCV MCH MCHC RDW Plt Count Lymphocytes # Lymphocytes # (Manual) ABG pH 7.26 L ABG pCO2 52 H ABG Total CO2 25 H Sodium Chloride Carbon Dioxide BUN Creatinine Glucose POC Glucose (mg/dL) 112 H Plasma Lactic Acid Kurt 5.5 H* Calcium Magnesium Total Protein Albumin 07/03/17 07/03/17 07/04/17 18:32 19:41 00:02 RBC Hgb Hct MCV MCH MCHC RDW Plt Count Lymphocytes # Lymphocytes # (Manual) ABG pH ABG pCO2 ABG Total CO2 Sodium Chloride Carbon Dioxide BUN Creatinine Glucose 124 H POC Glucose (mg/dL) Plasma Lactic Acid Kurt 3.1 H* 3.3 H* Calcium Magnesium Total Protein Albumin 07/04/17 07/04/17 07/04/17 00:05 04:10 04:10 RBC Hgb 11.2 L D Hct 35.9 L MCV 73.1 L D MCH 22.8 L MCHC RDW 18.3 H Plt Count 93 L Lymphocytes # 0.7 L Lymphocytes # (Manual) ABG pH ABG pCO2 ABG Total CO2 Sodium Chloride Carbon Dioxide 31 H BUN Creatinine 0.60 L Glucose 106 H POC Glucose (mg/dL) 129 H Plasma Lactic Acid Kurt Calcium Magnesium Total Protein Albumin 07/04/17 04:10 RBC Hgb Hct MCV MCH MCHC RDW Plt Count Lymphocytes # Lymphocytes # (Manual) ABG pH ABG pCO2 ABG Total CO2 Sodium Chloride Carbon Dioxide BUN Creatinine Glucose POC Glucose (mg/dL) Plasma Lactic Acid Kurt 2.2 H* Calcium Magnesium Total Protein Albumin - Diagnostic Findings Chest x-ray: image reviewed Assessment and Plan Assessment: Impression: #1 Acute seizure activity of unclear etiology. Computed tomography scan of the brain reveals abnormal attenuation within the right temporal and parietal lobe may be in the basis of vasogenic edema given the patient's history of glioblastoma. There is also noted encephalomalacia involving the posterior occipital and parietal lobe. Initiated on Keppra. #2 History of glioblastoma, surgical intervention in January 2017. #3 History of closed head injury as a child with chronic migraines. Plan: The patient was seen and evaluated by Dr. Minor. We'll discontinue the bicarb drip. Place him on D5W with LR at 75 MLS per hour. Continue with seizure precautions. Neurology is on the case. Keppra has been initiated. EEG is pending. The patient would benefit from transfer to a tertiary care facility. The patient is requesting to go to where his neurosurgeon is at, [facility]. We'll have the attending make arrangements. In the interim we'll continue to monitor him here closely in the intensive care unit and make further recommendations based on his clinical status. I, the cosigning physician, performed a history & physical examination of the patient. Lungs sounds are clear. Maintaining good O2 saturations in the 90s on 2 L/m per nasal cannula. I discussed the assessment and plan of care with my nurse practitioner, Jennifer Gant. I attest to the above consultation as dictated by her. Time with Patient: Greater than 30
[2017-07-04 12:27] LABS: Glucose,Whole Blood 94 mg/dL (75-99)
[2017-07-04 13:24] VITALS: BP 103/69; PULSE 72; RESP 17
--- NOTE | 2017-07-04 17:54 | DS ---
DISCHARGE SUMMARY DATE OF ADMISSION: 07/03/2017 DATE OF TRANSFER: 07/04/2016 FINAL DIAGNOSIS: 1. Recurrent seizures, grand mal in a patient with recent partial glioblastoma. 2. Encephalomalacia due to recent brain surgery. 3. Glioblastoma with partial removal, getting chemotherapy. 4. Severe hypernatremia, likely from free water deficit, present on admission, now corrected. 5. Significant metabolic acidosis upon presentation, improved. 6. Hypercalcemia, probably from free water deficit. CONSULTATION: 1. Dr. Banks from Neurology. 2. Dr. Forbes from Nephrology. 3. Dr. Minor from Pulmonary. HOSPITAL COURSE: This is a 41-year-old patient of Dr. Stockton. He used to live in [place], [facility] last year, found to have a glioblastoma. Patient did undergo a partial tumor resection, more cannot be removed because of the location. Started on chemotherapy. The initial surgery was done by Dr. Broussard at [facility] then followed at the [facility]. Patient presented with at least 3 rounds of seizures, put on IV Keppra. Sodium was 156 and severely acidotic with a bicarb at 9. Patient's bicarb improved. Sodium did come down. Patient is awake this morning, actually talking. Did talk to patient's mother and father at the bedside. Dr. Minor wanted the patient to be transferred to [facility]. Did speak to Dr. Smith from [facility] who did accept the patient. Patient's neurosurgeon there is Dr. Broussard. On examination, patient able to answer questions. Lungs are clear. A bit tired- appearing. TODAY'S LABS: White count 5.9, hemoglobin 11.2, potassium 3.7, bicarb 31, BUN 9, creatinine 0.60. DISPOSITION: [facility], accepting physician Dr. Smith and Dr. Broussard from Neurosurgery. Discharge planning and time more than 35 minutes. Prognosis guarded. MMODL / IJN: [id number] /
== END 2017-07-04 13:30 | disposition short-term general hospital (02) | DRG 54 ==
LOC: EC 12:37 → 6ICU 16:10
PROVIDERS: ADMIT Hospitalist; ATTEND Hospitalist
DX: C71.9 Malignant neoplasm of brain, unspecified (principal); G93.6 Cerebral edema; E87.0 Hyperosmolality and hypernatremia; E83.52 Hypercalcemia; E87.2 Acidosis; F17.200 Nicotine dependence, unspecified, uncomplicated; G40.909 Epilepsy, unspecified, not intractable, without status epilepticus; G93.89 Other specified disorders of brain; I49.3 Ventricular premature depolarization; Z79.899 Other long term (current) drug therapy; Z80.6 Family history of leukemia; Z80.8 Family history of malignant neoplasm of other organs or systems; Z87.820 Personal history of traumatic brain injury; Z91.018 Allergy to other foods
CPT/HCPCS: 36415; 36600; 70450; 71045; 80048; 80053; 81003; 82550; 82553; 82805; 83605; 83735; 84100; 84484; 85025; 85610; 85730; 87040; 93005; 95816; 96374; 96375; 99291